=== PATIENT | female | born 1950 | race Asian ===

== ENCOUNTER 2024-03-20 18:19 | Emergency (ER) | payer MEDICAID ==
[~2024-03-20] VITALS: Ht 157.5 cm; Wt 54.0 kg
[2024-03-20 18:23] VITALS: O2SAT 96
[2024-03-20] MEDS: ONDANSETRON HCL 4MG/2ML INJ IV ONE (18:50)
[2024-03-20] MEDS: PANTOPRAZOLE SODIUM 40 MG/VIAL IV ONE (18:50)
[2024-03-20 20:11] LABS: BASOPHILS % 0.4 % (0.0-2.0); EOSINOPHILS % 1.4 % (0.0-5.0); HEMATOCRIT. 24.5 % (36.0-48.0); LYMPHOCYTES % 10.1 % (20.0-50.0); MEAN CORPUSCULAR HEMOGLOBIN 29.8 pg (28.0-32.0); MEAN CORPUSCULAR HGB CONC 32.6 g/dL (31.0-37.0); MEAN CORPUSCULAR VOLUME 91.6 fL (81.0-99.0); MEAN PLATELET VOLUME 7.7 fl (7.4-10.4); MONOCYTES % 9.7 % (2.0-8.0); NEUTROPHILS % 78.4 % (40.0-76.0); RED BLOOD CELL COUNT 2.67 mill/uL (4.2-5.4); RED CELL DISTRIBUTION WIDTH 15.5 % (11.6-14.6); WHITE BLOOD COUNT 4.6 x1000/uL (4.5-11.0)
[2024-03-20 20:15] LABS: CARBON DIOXIDE 27 mEq/L (21-32); CHLORIDE 111 mEq/L (98-107); POTASSIUM 4.6 mEq/L (3.5-5.1); SODIUM 142 mEq/L (136-145)
[2024-03-20 20:16] LABS: CALCIUM 8.9 mg/dL (8.7-10.4)
[2024-03-20 20:20] LABS: INR 1.3; PARTIAL THROMBOPLASTIN TIME 23.6 sec (23.4-31.0); PROTHROMBIN TIME 13.8 sec (9.6-11.0)
[2024-03-20 20:21] LABS: CREATININE 0.9 mg/dL (0.6-1.0); GLUCOSE 193 mg/dL (70-105); UREA NITROGEN BLOOD 18 mg/dL (9-23)
[2024-03-20 20:22] LABS: ALANINE AMINOTRANSFERASE 28 IU/L (10-49)
[2024-03-20 20:23] LABS: ALBUMIN 3.4 g/dL (3.2-4.8); ASPARTATE AMINOTRANSFERASE 48 IU/L (<34); BILIRUBIN DIRECT 0.7 mg/dL (<=3.0); BILIRUBIN TOTAL 1.6 mg/dL (0.1-1.0)
[2024-03-20 20:45] LABS: DIFFERENTIAL COMMENT 1; PLATELET 42 x1000/uL (130-400)
[2024-03-20] MEDS: PANTOPRAZOLE 80 MG in SODIUM CHLORIDE 0.9% 100 ML IV SCH ×2 (22:04→23:49)
[2024-03-20] MEDS ORDERED: IPRATROPIUM/ALBUTEROL 0.5-3(2.5)MG/3ML NEB NEB PRN (22:30)
[2024-03-20] MEDS ORDERED: DEXTROSE 50% WATER 50ML SYRINGE IV PRN (22:30)
[2024-03-20] MEDS ORDERED: ACETAMINOPHEN 650MG SUPP PR PRN ×2 (22:30)
[2024-03-20] MEDS ORDERED: ONDANSETRON HCL 4MG/2ML INJ IV PRN (22:30)
[2024-03-20] MEDS ORDERED: DEXT 5%/LACTATED RINGERS 1,000 ML IV SCH (22:30)
[2024-03-20 23:20] LABS: IRON 227 ug/dL (50-170)
[2024-03-20 23:23] LABS: TOTAL IRON BINDING CAPACITY 330 ug/dl (250-425)
[2024-03-20 23:25] LABS: FOLIC ACID (FOLATE) SERUM > 20.00 ng/mL (>5.38); VITAMIN B12 SERUM 482 pg/mL (211-911)
[2024-03-20 23:26] LABS: T4 FREE 0.82 ng/dL (0.89-1.76); THYROID STIMULATING HORMONE 2.25 uIU/mL (0.55-4.78)
[2024-03-20] MEDS ORDERED: OCTREOTIDE 1,000 MCG in SODIUM CHLORIDE 0.9% 98 ML IV SCH (23:30)
[2024-03-20 23:44] LABS: ETHANOL BLOOD < 10 mg/dL (<10)
[2024-03-21 00:04] LABS: HEMATOCRIT 21.5 % (36.0-48.0); HEMOGLOBIN 7.1 g/dL (12.0-16.0)
[2024-03-21] MEDS: CEFTRIAXONE 1GM/50ML 50 ML IV SCH (00:25)
[2024-03-21] MEDS: OCTREOTIDE 1,000 MCG in SODIUM CHLORIDE 0.9% 100 ML IV SCH (00:45)
[2024-03-21 01:20] VITALS: BP 124/50; PULSE 58; RESP 13; TEMP 98.9
[2024-03-21] MEDS ORDERED: INSULIN LISPRO 100 UNITS/ML SUBCUT SCH (08:20)
[2024-03-21] MEDS ORDERED: BLOOD SUGAR DIAGNOSTIC STRIP TEST SCH (09:00)
== END 2024-03-21 02:00 | disposition left against medical advice (07) ==
LOC: ER 18:19 → EDBEDREQ 03-21 01:10 → EDBEDREQTM 03-21 01:10 → ER 03-21 02:00
DX: K92.2 Gastrointestinal hemorrhage, unspecified (principal); E11.9 Type 2 diabetes mellitus without complications; I10 Essential (primary) hypertension
CPT/HCPCS: 80076; 80048; 80320; 82607; 82746; 83036; 84439; 83540; 83550; 83690; 84443; 85014; 85018; 85025; 85610; 85730; 86850; 86900; 86901; 36415; 71045; 93970; 96365; 96375; 99285; 96367; 96368; J2354; J2405; J2470; J7050; Z7610 ×2; J0696; G0480